=== PATIENT | female | born 1970 | race American Indian/Alaskan Native ===

== ENCOUNTER 2017-03-25 07:39 | Outpatient (CLI) | payer OTHER ==
--- NOTE | 2017-03-28 10:49 | Magnetic Resonance Report ---
MRI LEFT WRIST WITHOUT CONTRAST: 03/25/17 07:58:00 CLINICAL: Osteoarthritis. Pain. TECHNIQUE: Sagittal, coronal and axial T1, sagittal, coronal and axial T2 fat sat, coronal 3-D gradient echo and sagittal STIR sequences on a 1.5 Kiersten magnet. FINDINGS: Multiple periarticular erosions. The largest is on the volar aspect of the distal radius at the radiocarpal joint. Erosion of the ulnar styloid. Multiple carpal erosions with the most prominent involving the scaphoid, lunate and capitate bones. Moderate joint effusion. Abnormal T1 hypointense signal adjacent to the carpal bones and extensor tendons at the wrist is consistent with synovitis. A large tangela-ulnar synovial fluid collection or pannus measures approximately 3.3 x 1.9 cm. Marrow edema involving the scaphoid, lunate, capitate, trapezium and trapezoid bones. No fracture. Limited images of the MCP joints of the hand are unremarkable. IMPRESSION:Marrow edema and erosions involving the distal radius, ulna and multiple carpal bones along with evidence of synovitis, joint effusion and abnormal synovial collections is strongly suggestive of rheumatoid arthritis. Correlation with radiographs of the hand and wrist may be helpful. Note: An MRI contrast exam may be helpful in differentiating pannus from joint effusion.
== END 2017-03-25 07:40 | disposition home or self-care (01) ==
LOC: MRI 07:39
PROVIDERS: ATTEND General Practice
DX: M19.032 Primary osteoarthritis, left wrist (principal); M65.832 Other synovitis and tenosynovitis, left forearm; M85.832 Other specified disorders of bone density and structure, left forearm